=== PATIENT | female | born 1980 | race Caucasian/White ===

== ENCOUNTER 2016-08-06 13:35 | Emergency (ER) | payer OTHER ==
[2016-08-06 14:37] VITALS: BP 146/84
--- NOTE | 2016-08-06 14:56 | UC ---
Abdominal Pain Female HPI - HPI Summary HPI Summary: 36 yo female with a 10 day hx of intermittent crampy abd pain and diarrhea (3-4 episodes/day) no f/c no n/v no UTI symptoms no blood in stool taking PO well thinks she may have lost a pound or two no recent antibiotics no travel no pets no sick family members or co workers has had 2 C-S - History of Current Complaint Chief Complaint: UCGI Stated Complaint: STOMACH COMPLAINT Time Seen by Provider: 08/06/16 14:33 Hx Obtained From: Patient Hx Last Menstrual Period: 07/30/16 Onset/Duration: Gradual Onset, Lasting Days Severity Initially: Mild Severity Currently: Mild Pain Intensity: 1 Pain Scale Used: 0-10 Numeric Location: Diffuse Character: Cramping Aggravating Factor(s): Food Alleviating Factor(s): Spontaneous Resolution Associated Signs and Symptoms: Positive: Diarrhea. Negative: Diaphoresis, Fever , Cough, Chest Pain, Dizzy, Back Pain, Constipation, Blood in Stool, Urinary Symptoms, Decreased Appetite, Vaginal Bleeding, Vaginal Discharge, Nausea, Vomiting Allergies/Adverse Reactions: Allergies Allergy/AdvReac Type Severity Reaction Status Date / Time anesthesia Allergy Nausea And Uncoded 08/06/16 14:25 Vomiting Home Medications: Home Medications NK [No Home Medications Reported] 08/06/16 [History Confirmed 08/06/16] PMH/Surg Hx/FS Hx/Imm Hx Previously Healthy: Yes - Surgical History Surgical History: Yes Surgery Procedure, Year, and Place: 2 C-sections, tonsils - Family History Known Family History: Positive: Hypertension, Other - no fhx crohns or UC - Social History Alcohol Use: Rare Substance Use Type: None Smoking Status (MU): Never Smoked Tobacco Review of Systems Constitutional: Negative Skin: Negative Eyes: Negative ENT: Negative Respiratory: Negative Cardiovascular: Negative Gastrointestinal: Abdominal Pain, Diarrhea Genitourinary: Negative Motor: Negative Neurovascular: Negative Musculoskeletal: Negative Neurological: Negative Psychological: Negative All Other Systems Reviewed And Are Negative: Yes Physical Exam Triage Information Reviewed: Yes Appearance: Well-Appearing, No Pain Distress, Well-Nourished Vital Signs: Initial Vital Signs Temp 99.3 F 08/06/16 14:17 Pulse 107 08/06/16 14:17 Resp 16 08/06/16 14:17 BP 146/84 08/06/16 14:17 Pulse Ox 100 08/06/16 14:17 Vital Signs Reviewed: Yes Eyes: Positive: Conjunctiva Clear ENT: Positive: Hearing grossly normal. Negative: Nasal congestion, Nasal drainage, TMs normal, Tonsillar exudate, Trismus, Muffled/hoarse voice Neck: Positive: Supple, Nontender Respiratory: Positive: Lungs clear, Normal breath sounds, No respiratory distress Cardiovascular: Positive: RRR, No Murmur Abdomen Description: Positive: Nontender, No Organomegaly, Soft. Negative: Distended, Hepatomegaly, McBurney's Point Tenderness, Peritoneal Signs, Pulsatile Mass, Splenomegaly Bowel Sounds: Positive: Present, Hyperactive Musculoskeletal: Positive: Strength Intact, ROM Intact, No Edema Neurological: Positive: Alert Psychological Exam: Normal Skin Exam: Normal Abd Pain Female Course/Dx - Differential Dx/Diagnosis Provider Diagnoses: acute diarrhea Discharge - Discharge Plan Condition: Stable Disposition: HOME Patient Education Materials: Acute Diarrhea (ED) Referrals: TYSON Henry [Primary Care Provider] - 4 Days Additional Instructions: bring in stool for studies recheck for worsening symptoms especially vomiting/fever/increased abd pain/blood in stool see your provider later this week rice/unripened banana may help bulk up stool
== END 2016-08-06 14:59 | disposition home or self-care (01) ==
LOC: UCCORT 13:35
DX: R19.7 Diarrhea, unspecified (principal); Z88.6 Allergy status to analgesic agent
CPT/HCPCS: 99201; G0463

== ENCOUNTER 2016-12-19 17:17 | Emergency (ER) | payer OTHER ==
[2016-12-19 17:34] VITALS: BP 152/93
--- NOTE | 2016-12-19 17:34 | UC ---
Complaint Female HPI - HPI Summary HPI Summary: 36 YEAR OLD FEMALE PRESENTS WITH COMPLAINS OF BACK PAIN AND CONCERN OF URINARY TRACT INFECTION. - History Of Current Complaint Stated Complaint: URINARY COMPLAINT/BACK PAIN Time Seen by Provider: 12/19/16 17:32 Hx Last Menstrual Period: 07/30/16 - Allergies/Home Medications Allergies/Adverse Reactions: Allergies Allergy/AdvReac Type Severity Reaction Status Date / Time anesthesia Allergy Nausea And Uncoded 12/19/16 17:34 Vomiting Home Medications: Home Medications Acetaminophen TAB* [Tylenol TAB*] 650 mg PO Q4H PRN 12/19/16 [History Confirmed 12/19/16] PMH/Surg Hx/FS Hx/Imm Hx - Surgical History Surgical History: Yes Surgery Procedure, Year, and Place: 2 C-sections, tonsils - Family History Known Family History: Positive: Hypertension, Other - no fhx crohns or UC - Social History Alcohol Use: Rare Substance Use Type: None Smoking Status (MU): Never Smoked Tobacco Review of Systems Constitutional: Negative Skin: Negative Eyes: Negative ENT: Negative Respiratory: Negative Cardiovascular: Negative Gastrointestinal: Negative Genitourinary: Negative Motor: Negative Neurovascular: Negative Musculoskeletal: Other: - BACK PAIN Neurological: Negative Psychological: Negative All Other Systems Reviewed And Are Negative: Yes Physical Exam Triage Information Reviewed: Yes Eye Exam: Normal ENT Exam: Normal Dental Exam: Normal Neck exam: Normal Neck: Positive: 1 Respiratory Exam: Normal Cardiovascular Exam: Normal Abdominal Exam: Normal Abdomen Description: Positive: CVA Tenderness (R), CVA Tenderness (L) Musculoskeletal: Positive: Other: - BACK/CVA PAIN Neurological Exam: Normal Psychological Exam: Normal Skin Exam: Normal Complaint Female Dx - Differential Dx/Diagnosis Provider Diagnoses: SI JOIN TENDERNESS. BILATERAL LOWER BACK PAIN Discharge - Discharge Plan Condition: Stable Disposition: HOME Prescriptions: Ibuprofen TAB* [Motrin TAB* 800 MG] 800 mg PO Q8H PRN #30 tab PRN Reason: Pain - Moderate Methocarbamol TAB* [Robaxin 500 MG TAB*] 500 mg PO TID PRN #30 tab PRN Reason: Spasms - Back Nitrofurantoin Monohyd Macro [Macrobid] 100 mg PO BID #14 cap Patient Education Materials: Urinary Tract Infection in Women (ED) Referrals: TYSON Henry [Primary Care Provider] - If Needed
== END 2016-12-19 18:12 | disposition home or self-care (01) ==
LOC: UCCORT 17:17
DX: M53.3 Sacrococcygeal disorders, not elsewhere classified (principal); M54.5 Low back pain; Z32.02 Encounter for pregnancy test, result negative; Z88.4 Allergy status to anesthetic agent
CPT/HCPCS: 81003; 84702; 87086; 99212; G0463

== ENCOUNTER 2018-05-17 12:35 | Emergency (ER) | payer OTHER ==
[2018-05-17 14:14] VITALS: BP 155/88
--- NOTE | 2018-05-17 14:41 | UC ---
Abdominal Pain Female HPI - HPI Summary HPI Summary: body aches and stomach aches for a couple of days no nausea vomiting or diarrhea, no urinary symptoms--no fevers and has not felt feverish - History of Current Complaint Chief Complaint: UCAbdominalPain Stated Complaint: STOMACH ACHE/RIB/BACK PAIN Time Seen by Provider: 05/17/18 14:29 Hx Obtained From: Patient Hx Last Menstrual Period: 05/07/18 ?: No Onset/Duration: Gradual Onset, Lasting Days Timing: Intermittent Episodes Lasting: Pain Intensity: 3 Pain Scale Used: 0-10 Numeric Location: Diffuse Radiates: No Character: Aching, Burning Aggravating Factor(s): Nothing Alleviating Factor(s): Nothing Associated Signs and Symptoms: Positive: Back Pain - very low bilateral above hips Allergies/Adverse Reactions: Allergies Allergy/AdvReac Type Severity Reaction Status Date / Time anesthesia Allergy Nausea And Uncoded 05/17/18 14:10 Vomiting PMH/Surg Hx/FS Hx/Imm Hx Previously Healthy: Yes - Surgical History Surgical History: Yes Surgery Procedure, Year, and Place: 2 C-sections, tonsils - Family History Known Family History: Positive: Hypertension, Other - no fhx crohns or UC - Social History Occupation: Employed Full-time Lives: With Family Alcohol Use: Rare Substance Use Type: None Smoking Status (MU): Never Smoked Tobacco Review of Systems All Other Systems Reviewed And Are Negative: Yes Constitutional: Positive: Negative Skin: Positive: Negative Eyes: Positive: Negative ENT: Positive: Negative Respiratory: Positive: Negative Cardiovascular: Positive: Negative Gastrointestinal: Positive: Abdominal Pain Genitourinary: Positive: Negative Motor: Positive: Negative Neurovascular: Positive: Negative Musculoskeletal: Positive: Arthralgia, Myalgia Neurological: Positive: Negative Psychological: Positive: Negative Is Patient Immunocompromised?: No Physical Exam Triage Information Reviewed: Yes Appearance: Well-Appearing, No Pain Distress, Well-Nourished Vital Signs: Initial Vital Signs Temp 99.5 F 05/17/18 14:08 Pulse 102 05/17/18 14:08 Resp 16 05/17/18 14:08 BP 155/88 05/17/18 14:08 Pulse Ox 98 05/17/18 14:08 Vital Signs Reviewed: Yes Eye Exam: Normal Eyes: Positive: Conjunctiva Clear ENT Exam: Normal ENT: Positive: Normal ENT inspection, Hearing grossly normal, Pharynx normal, TMs normal, Uvula midline. Negative: Nasal congestion, Tonsillar swelling, Tonsillar exudate, Trismus, Muffled voice, Hoarse voice, Dental tenderness, Sinus tenderness Dental Exam: Normal Neck exam: Normal Neck: Positive: Supple, Nontender, No Lymphadenopathy Respiratory Exam: Normal Respiratory: Positive: Chest non-tender, Lungs clear, Normal breath sounds, No respiratory distress, No accessory muscle use Cardiovascular Exam: Normal Cardiovascular: Positive: RRR, No Murmur, Pulses Normal, Brisk Capillary Refill Musculoskeletal Exam: Normal Musculoskeletal: Positive: Strength Intact, ROM Intact, No Edema Neurological Exam: Normal Neurological: Positive: Alert, Muscle Tone Normal Psychological Exam: Normal Skin Exam: Normal Diagnostics - Laboratory Diagnostic Studies Completed/Ordered: ua and u-preg both negative Abd Pain Female Course/Dx - Course Course Of Treatment: light diet rest, tylenol, ibuprofen for pain to ED for worsening sx - Differential Dx/Diagnosis Provider Diagnosis: Viral syndrome Discharge - Sign-Out/Discharge Documenting (check all that apply): Patient Departure All imaging exams completed and their final reports reviewed: No Studies - Discharge Plan Condition: Stable Disposition: HOME Patient Education Materials: Viral Syndrome (ED), Abdominal Pain (ED) Referrals: TYSON Henry [Primary Care Provider] - If Needed - Billing Disposition and Condition Condition: STABLE Disposition: Home
== END 2018-05-17 15:28 | disposition home or self-care (01) ==
LOC: UCCORT 12:35
DX: B34.9 Viral infection, unspecified (principal); Z88.4 Allergy status to anesthetic agent
CPT/HCPCS: 81003; 84702; 99211; G0463